=== PATIENT | female | born 1945 | race Caucasian/White ===

== ENCOUNTER → 2021-12-22 | Outpatient (CLI) | payer OTHER ==
[~2021-12-22] MED LIST: ALENDRONATE SOD70 MG PO; ASPIR 8181 MG PO; BACTRIM DS TAB1 EACH PO; COMBIVENT RESPIM4 GM IH; LORATADINE10 MG PO; MOBIC7.5 MG PO; MONTELUKAST SOD10 MG PO; OMEPRAZOLE20 MG PO; PRAVASTATIN SOD20 MG PO; TRELEGY ELLIPT1 EACH IH
== END ==
LOC: RAD 15:52
PROVIDERS: ATTEND Internal Medicine Critical Care Medicine
DX: J44.9 Chronic obstructive pulmonary disease, unspecified (principal)
CPT/HCPCS: 71046

== ENCOUNTER → 2021-12-27 | Outpatient (CLI) | payer OTHER ==
[~2021-12-27] MED LIST changes: +IOPAMIDOL 370 MG/ML 200 ML INFUS..BTL INJ ONE; +SODIUM CHLORIDE 0.9% 50ML 50 ML ONE
[2021-12-27 14:34] LABS: CREATININE, SERUM 0.76 mg/dL (0.57-1.11)
== END ==
LOC: MAMMO 13:28
PROVIDERS: ATTEND Internal Medicine
DX: Z12.31 Encounter for screening mammogram for malignant neoplasm of breast (principal); R91.8 Other nonspecific abnormal finding of lung field; K76.0 Fatty (change of) liver, not elsewhere classified
CPT/HCPCS: 36415; 71260; 77067; 82565; 84520; Q9967

== ENCOUNTER → 2022-01-06 | Outpatient (CLI) | payer OTHER ==
[~2022-01-06] MED LIST changes: +FENTANYL CITRATE/PF 100MCG/2 ML INJ ONE; -IOPAMIDOL 370 MG/ML 200 ML INFUS..BTL INJ ONE; +LIDOCAINE HCL 1% LOCAL INJ 20 ML VIAL ONE; +MIDAZOLAM HCL 2 MG/2 ML VIAL ONE; +SODIUM CHLORIDE 0.9% 250ML 250 ML ONE; -SODIUM CHLORIDE 0.9% 50ML 50 ML ONE
[2022-01-06 11:21] LABS: BASOPHILS % 0.5 % (0.0-1.0); EOSINOPHILS % 0.3 % (0.0-6.0); HEMOGLOBIN 12.5 g/dL (12.0-16.0); LYMPHOCYTES % 38.8 % (18.0-39.1); MEAN CORPUSCULAR HEMOGLOBIN 30.7 pg (28-32); MEAN CORPUSCULAR HGB CONC 32.9 g/dL (31-35); MEAN CORPUSCULAR VOLUME 93.4 fL (81-99); MONOCYTES # (AUTO) 0.6 (0.2-0.8); MONOCYTES % 8.3 % (4.4-11.3); NEUTROPHILS % 51.7 % (38.7-80.0); PLATELET COUNT 368 x10e3/uL (140-360); RED BLOOD COUNT 4.07 x10e6/uL (3.6-5.1); RED CELL DISTRIBUTION WIDTH 14.3 % (11.7-14.4)
[2022-01-06 11:33] LABS: INR 0.84; PROTHROMBIN TIME 12.3 seconds (11.9-14.5)
[2022-01-06 11:34] LABS: PARTIAL THROMBOPLASTIN TIME 26.4 seconds (23.8-35.5)
== END ==
LOC: CT 09:42
PROVIDERS: ATTEND Internal Medicine
DX: D14.30 Benign neoplasm of unspecified bronchus and lung (principal)
CPT/HCPCS: 36415; 71250; 85025; 85610; 85730; J2001; J2250; J3010; J7050; U0002

== ENCOUNTER 2022-03-07 09:32 | Emergency (ER) | payer MEDICARE, OTHER ==
[~2022-03-07] VITALS: Ht 157.5 cm; Wt 70.3 kg
[~2022-03-07 09:32] MED LIST changes: -FENTANYL CITRATE/PF 100MCG/2 ML INJ ONE; -LIDOCAINE HCL 1% LOCAL INJ 20 ML VIAL ONE; -MIDAZOLAM HCL 2 MG/2 ML VIAL ONE; -SODIUM CHLORIDE 0.9% 250ML 250 ML ONE
[2022-03-07] MEDS ORDERED: ALBUTEROL/IPRATROPIUM 3 ML NEB NEB ONE (10:30)
[2022-03-07] MEDS ORDERED: DEXAMETHASONE SOD PHOS 10 MG/1 ML VIAL IM ONE (10:30)
[2022-03-07 11:57] VITALS: BP 131/59
== END 2022-03-07 12:30 | disposition home or self-care (01) ==
LOC: ER 09:40
DX: R05.9 Cough, unspecified (principal); J40 Bronchitis, not specified as acute or chronic; E78.5 Hyperlipidemia, unspecified; J44.9 Chronic obstructive pulmonary disease, unspecified
CPT/HCPCS: 71045; 94640; 94799; 99283; J1100

== ENCOUNTER → 2022-04-04 | Outpatient (CLI) | payer OTHER | LOC: CT 15:21 | PROVIDERS: ATTEND Internal Medicine Critical Care Medicine | DX: R91.8 Other nonspecific abnormal finding of lung field (principal) | CPT/HCPCS: 71250 ==

== ENCOUNTER → 2022-06-16 | Outpatient (CLI) | payer OTHER | LOC: RAD 15:45 | PROVIDERS: ATTEND Internal Medicine | DX: J40 Bronchitis, not specified as acute or chronic (principal); J44.9 Chronic obstructive pulmonary disease, unspecified | CPT/HCPCS: 71046 ==

== ENCOUNTER 2023-03-09 13:44 | Outpatient (RCR) | payer OTHER | END 2023-03-15 | LOC: PT 13:44 | PROVIDERS: ATTEND Internal Medicine | DX: R42 Dizziness and giddiness (principal) ==

== ENCOUNTER → 2023-04-17 | Outpatient (CLI) | payer OTHER | LOC: CT 16:00 | PROVIDERS: ATTEND Internal Medicine Critical Care Medicine | DX: R91.1 Solitary pulmonary nodule (principal) | CPT/HCPCS: 71250 ==

== ENCOUNTER → 2024-02-29 | Outpatient (REF) | payer OTHER | LOC: RAD 13:44 | PROVIDERS: ATTEND Internal Medicine | DX: M25.551 Pain in right hip (principal) ==

== ENCOUNTER 2024-12-03 16:52 | Inpatient (IN) | payer MEDICARE ==
[~2024-12-03] VITALS: Ht 157.5 cm; Wt 74.0 kg
[2024-12-03] MEDS ORDERED: MELOXICAM15 MG (17:26)
[2024-12-03] MEDS ORDERED: VITAMIN D325 MCG (17:26)
[2024-12-03] MEDS ORDERED: ROSUVASTATIN CA20 MG (17:26)
[2024-12-03] MEDS ORDERED: HYGROTON25 MG PO (17:26)
[2024-12-03] MEDS ORDERED: NEURONTIN100 MG PO (17:26)
[2024-12-03] MEDS ORDERED: PLAQUENIL200 MG PO (17:26)
[2024-12-03] MEDS: SODIUM CHLORIDE 0.9% 1000ML 1,000 ML IV SCH (20:13)
[2024-12-03] MEDS ORDERED: IOPAMIDOL 370 MG/ML 100 ML INFUS..BTL INJ ONE (20:37)
[2024-12-03 22:49] VITALS: PULSE 99; RESP 18; TEMP 97.1
[2024-12-04] VITALS (10 sets, daily range): BP systolic 107–135; BP diastolic 51–72; PULSE 75–97; RESP 16–21; TEMP 97.6–98.1; O2SAT 94–100
[2024-12-04 07:14] LABS: CHOL/HDL RATIO 2.2 (3.0-3.6)
[2024-12-04 07:49] LABS: TROPONIN I 0.002 ng/mL (0-0.300)
[2024-12-04] MEDS ORDERED: METOPROLOL TARTRATE INJ 1 MG/ML VIAL IV PRN (10:30)
[2024-12-04] MEDS ORDERED: SIMETHICONE 80 MG CHEW PO PRN (10:30)
[2024-12-04] MEDS ORDERED: DOCUSATE SODIUM 100 MG CAP PO PRN (10:30)
[2024-12-04] MEDS ORDERED: ALBUTEROL/IPRATROPIUM 3 ML NEB NEB PRN (10:30)
[2024-12-04] MEDS ORDERED: ACETAMINOPHEN 325 MG TAB PO PRN (10:30)
[2024-12-04 11:48] LABS: ALBUMIN 3.4 g/dL (3.5-5.0); BILIRUBIN,DIRECT 0.1 mg/dL (0.0-0.5); BILIRUBIN,TOTAL 0.3 mg/dL (0.2-1.2); TOTAL PROTEIN 5.8 g/dL (6.5-8.1)
[2024-12-04] MEDS: METHYLPREDNISOLONE SOD SUCC 40 MG/ML VIAL 1ML IV SCH (12:38)
[2024-12-04] MEDS: FUROSEMIDE INJ 10 MG/ML 2 ML VIAL IV SCH (12:38)
[2024-12-04 14:43] LABS: CREATINE KINASE 63 IU/L (29-168)
[2024-12-04 14:51] LABS: TROPONIN I < 0.001 ng/mL (0-0.300)
[2024-12-04] MEDS: HYDROXYCHLOROQUINE SULFATE 200 MG TAB PO SCH (16:18)
[2024-12-04] MEDS: GABAPENTIN 100 MG CAP PO SCH (16:18)
[2024-12-04] MEDS: ENOXAPARIN SOD INJ 40 MG/0.4 ML SYR SC SCH (16:19)
[2024-12-04] MEDS ORDERED: ENOXAPARIN SOD INJ 40 MG/0.4 ML SYR SC SCH (17:00)
[2024-12-04] MEDS: MELATONIN 3 MG TAB PO PRN (21:28)
[2024-12-04] MEDS: LORATADINE 10 MG TAB PO SCH (21:28)
[2024-12-04] MEDS: PANTOPRAZOLE SOD 40 MG TABEC PO SCH (21:28)
[2024-12-04] MEDS: ATORVASTATIN 40 MG TAB PO SCH (21:29)
[2024-12-04] MEDS: MELOXICAM 7.5 MG TAB PO SCH (21:30)
[2024-12-05] VITALS: BP 113/64; PULSE 87; RESP 18; TEMP 98.1; O2SAT 99
[2024-12-05 04:00] VITALS: BP 111/70; PULSE 94; RESP 18; TEMP 98.1; O2SAT 98
[2024-12-05 06:40] LABS: EOSINOPHILS % 0.1 % (0.0-6.0); HEMATOCRIT 33.2 % (34.2-44.1); HEMOGLOBIN 11.3 g/dL (12.0-16.0); LYMPHOCYTES # (AUTO) 0.8 (1.0-3.2); LYMPHOCYTES % 9.8 % (18.0-39.1); MEAN CORPUSCULAR HEMOGLOBIN 30.5 pg (28-32); MEAN CORPUSCULAR VOLUME 89.7 fL (81-99); MONOCYTES # (AUTO) 0.1 (0.2-0.8); MONOCYTES % 1.6 % (4.4-11.3); NEUTROPHILS # (AUTO) 6.7 (2.1-6.9); NEUTROPHILS % 87.7 % (38.7-80.0); PLATELET COUNT 257 x10e3/uL (140-360); RED CELL DISTRIBUTION WIDTH 13.1 % (11.7-14.4); WHITE BLOOD COUNT 7.67 x10e3/uL (4.8-10.8)
[2024-12-05 07:17] LABS: ANION GAP 15.3 mmol/L (8-16); CALCIUM 9.2 mg/dL (8.4-10.2); CREATININE, SERUM 0.73 mg/dL (0.57-1.11); MAGNESIUM 1.9 MG/DL (1.3-2.1); PHOSPHORUS 3.6 MG/DL (2.3-4.7)
[2024-12-05 07:21] LABS: POTASSIUM 3.3 mmol/L (3.5-5.1)
[2024-12-05 07:39] LABS: CREATINE KINASE 65 IU/L (29-168)
[2024-12-05 07:47] LABS: TROPONIN I < 0.001 ng/mL (0-0.300)
[2024-12-05 08:03] VITALS: BP 126/71; PULSE 90; RESP 19; TEMP 97.9; O2SAT 100
[2024-12-05] MEDS ORDERED: LORATADINE 10 MG TAB PO SCH (09:00)
[2024-12-05] MEDS: MONTELUKAST SODIUM 10 MG TAB PO SCH (09:37)
[2024-12-05] MEDS: CHLORTHALIDONE 25 MG TAB PO SCH (09:37)
[2024-12-05] MEDS: ASPIRIN 81 MG ENTERIC COATED PO SCH (09:38)
[2024-12-05] MEDS: AMLODIPINE BESYLATE 5 MG TAB PO SCH (09:38)
[2024-12-05 09:50] VITALS: BP 126/71; PULSE 90; RESP 19; TEMP 97.9; O2SAT 100
[2024-12-05] MEDS ORDERED: FUROSEMIDE20 MG PO (10:12)
[2024-12-05] MEDS ORDERED: LORATADINE10 MG PO (10:12)
[2024-12-05] MEDS ORDERED: ASPIRIN EC81 MG PO (10:12)
[2024-12-05] MEDS ORDERED: PREDNISONE20 MG PO (10:12)
[2024-12-05] MEDS ORDERED: NORVASC5 MG PO (10:12)
== END 2024-12-05 11:33 | disposition home or self-care (01) | DRG 191 ==
LOC: FSED 16:55 → ERHOLD 21:32 → MED/SURG3 12-04 00:44
PROVIDERS: ADMIT Internal Medicine; ATTEND Internal Medicine
DX: J44.1 Chronic obstructive pulmonary disease with (acute) exacerbation (principal); I50.32 Chronic diastolic (congestive) heart failure; J96.11 Chronic respiratory failure with hypoxia; Z99.81 Dependence on supplemental oxygen; I11.0 Hypertensive heart disease with heart failure; E87.6 Hypokalemia; K21.9 Gastro-esophageal reflux disease without esophagitis; M06.9 Rheumatoid arthritis, unspecified; E78.5 Hyperlipidemia, unspecified; R00.0 Tachycardia, unspecified; R79.1 Abnormal coagulation profile; Z87.891 Personal history of nicotine dependence; Z79.82 Long term (current) use of aspirin; Z79.899 Other long term (current) drug therapy
CPT/HCPCS: 36415; 71046; 71260; 80048; 80053; 80061; 80076; 80307; 81003; 82550; 83735; 83880; 84100; 84484; 85025; 85379; 93005; 94799; 99284; J1650; J1940; J2919; J7030; Q9967